=== PATIENT | male | born 1940 ===

== ENCOUNTER 2020-06-27 06:12 | Outpatient (RCR) | payer MEDICARE ==
[2020-06-27] VITALS (8 sets, daily range): BP systolic 171–184; BP diastolic 65–78
[~2020-06-27] VITALS: Ht 165.1 cm; Wt 65.8 kg
[2020-06-27] MEDS ORDERED: Succinylcholine 20mg/ml 10ml vial ONE (06:13)
[2020-06-27] MEDS ORDERED: NS 500ML ONE (06:13)
[2020-06-27] MEDS ORDERED: Etomidate 40mg/20ml Inj IV ONE (06:13)
== END 2020-07-17 | disposition home or self-care (01) ==
LOC: ECT 06:12
DX: F31.4 Bipolar disorder, current episode depressed, severe, without psychotic features (principal); E78.5 Hyperlipidemia, unspecified; I25.10 Atherosclerotic heart disease of native coronary artery without angina pectoris; I13.10 Hypertensive heart and chronic kidney disease without heart failure, with stage 1 through stage 4 chronic kidney disease, or unspecified chronic kidney disease; N18.9 Chronic kidney disease, unspecified
CPT/HCPCS: 90870; J0330; J7040

== ENCOUNTER 2020-08-01 06:04 | Outpatient (RCR) | payer MEDICARE ==
[~2020-08-01] VITALS: Ht 30.5 cm; Wt 0.5 kg
[2020-08-01] VITALS (7 sets, daily range): BP systolic 138–187; BP diastolic 62–88
[2020-08-01] MEDS ORDERED: Etomidate 40mg/20ml Inj IV ONE (06:05)
[2020-08-01] MEDS ORDERED: Succinylcholine 20mg/ml 10ml vial ONE (06:05)
== END 2020-08-14 | disposition home or self-care (01) ==
LOC: ECT 06:04
DX: F31.4 Bipolar disorder, current episode depressed, severe, without psychotic features (principal)
CPT/HCPCS: 90870; J0330